=== PATIENT | female | born 1960 ===

== ENCOUNTER 2018-12-31 14:31 | Inpatient (IN) | payer OTHER ==
[~2018-12-31] VITALS: Ht 170.2 cm; Wt 64.5 kg
[2018-12-31] MEDS ORDERED: SODIUM CHLORIDE 0.9% 1,000 ML IV ONE (14:45)
[2018-12-31] MEDS ORDERED: SODIUM CHLORIDE 0.9% 100 ML ONE (14:56)
[2018-12-31] MEDS ORDERED: IOVERSOL 350 MG/ML 100 ML VIAL ONE (14:56)
[2018-12-31 15:19] LABS: GLUCOSE,POINT OF CARE 46 MG/DL (70-110)
[2018-12-31 15:33] LABS: BASOPHILS % (AUTO) 0.2 % (0.0-2.0); EOSINOPHILS % (AUTO) 0 % (1.0-6.0); HEMATOCRIT 39.6 % (36-46); HEMOGLOBIN 12.9 g/dL (12.0-16.0); LYMPHOCYTES # (AUTO) 1.9 K/uL (1.0-4.8); LYMPHOCYTES % (AUTO) 12.3 % (22.0-44.0); MEAN CORPUSCULAR HEMOGLOBIN 26.5 pg (26.0-34.0); MEAN CORPUSCULAR HGB CONC 32.7 G/dL (31.0-37.0); MEAN CORPUSCULAR VOLUME 81 fL (80-100); MONOCYTES # (AUTO) 1.5 K/uL (0.1-1.0); MONOCYTES % (AUTO) 9.7 % (2.0-9.0); NEUTROPHILS # (AUTO) 11.9 K/uL (1.8-7.7); NEUTROPHILS % (AUTO) 77.8 % (40.0-70.0); PLATELET COUNT (AUTO) 340 K/uL (150-450); RED BLOOD CELL COUNT(AUTO) 4.88 MIL/uL (4.00-5.20); RED CELL DISTRIBUTION WIDTH 17.9 % (11.5-14.5)
[2018-12-31 15:36] LABS: INR 1.4 (0.9-1.1); PROTHROMBIN TIME 14.6 SEC (9.4-11.6)
[2018-12-31 15:41] LABS: AMMONIA 30 umol/L (11-32)
[2018-12-31 15:44] LABS: TROPONIN I < 0.02 ng/mL (0.00-0.05)
[2018-12-31] MEDS ORDERED: CETI10TA59 PO (15:44)
[2018-12-31] MEDS ORDERED: ASPI-1182 PO (15:44)
[2018-12-31] MEDS ORDERED: ATOR40TA28 PO (15:44)
[2018-12-31] MEDS ORDERED: METO50 PO (15:44)
[2018-12-31] MEDS ORDERED: BENA1TAB18 PO (15:44)
[2018-12-31] MEDS ORDERED: AMLO10TA7 PO (15:44)
[2018-12-31 15:53] LABS: GLUCOSE,POINT OF CARE 131 MG/DL (70-110)
[2018-12-31 16:09] LABS: ALANINE AMINOTRANSFERASE 200 U/L (12-78); ALBUMIN 2.4 g/dL (3.4-5.0); ALKALINE PHOSPHATASE 217 U/L (46-116); ANION GAP 12 mmol/L (8-16); ASPARTATE AMINOTRANSFERASE 638 U/L (15-37); BILIRUBIN,TOTAL 1.4 mg/dL (0.1-1.0); CARBON DIOXIDE 28 mmol/L (22-29); CHLORIDE 99 mmol/L (98-107); CREATININE 2.05 mg/dL (0.60-1.30); GLOMERULAR FILTR. RATE CALC 25 mL/min (>60); HCG,QUANTITATIVE < 1 mIU/mL (0-6); LACTIC ACID 3.5 mmol/L (0.4-2.0); LIPASE 1794 U/L (73-393); POTASSIUM 4.2 mmol/L (3.5-5.1); SODIUM SERUM 139 mmol/L (136-145); TOTAL PROTEIN, SERUM 8.6 g/dL (6.4-8.2); UREA NITROGEN, BLOOD 73 mg/dL (7-18)
[2018-12-31 16:15] LABS: CREATINE KINASE, TOTAL ONLY 4291 U/L (26-192); GLUCOSE,RANDOM 48 mg/dL (70-110)
[2018-12-31] MEDS ORDERED: LORazepam 2 MG/ML VIAL IVP ONE (16:15)
[2018-12-31 16:16] LABS: CALCIUM, TOTAL 17.3 mg/dL (8.8-10.5)
[2018-12-31 16:17] LABS: SALICYLATE < 2.8 mg/dL (2.8-20.0)
[2018-12-31 16:29] LABS: ACETAMINOPHEN < 2 mcg/mL (10-30)
[2018-12-31] MEDS ORDERED: BISACODYL 10 MG RECTAL RECTAL SUPPOSITORY PR PRN (16:30)
[2018-12-31] MEDS ORDERED: DEXTROSE 5%-0.45% SODIUM CHL 1,000 ML IV ONE (16:30)
[2018-12-31] MEDS ORDERED: PIPERACILLIN/TAZO 3.375 GM/D5W 50 ML IV ONE (16:30)
[2018-12-31] MEDS ORDERED: ACETAMINOPHEN 325 MG TABLET PO PRN (16:30)
[2018-12-31 17:00] LABS: PLATELET MORPHOLOGY COMMENT GIANT PLTS PRESENT
[2018-12-31] MEDS ORDERED: PAMIDRONATE DISODIUM 60 MG in SODIUM CHLORIDE 0.9% 500 ML IV ONE (17:00)
[2018-12-31] MEDS ORDERED: CALCITONIN,SALMON,SYNTHETIC 200 UNITS/ML 2 ML VIAL IM ONE (17:00)
[2018-12-31 17:13] LABS: APPEARANCE,URINE CLOUDY (CLEAR); GLUCOSE, URINE (UA) NEGATIVE (NEGATIVE); KETONES,URINE NEGATIVE (NEGATIVE); LEUKOCYTE ESTERASE ,URINE NEGATIVE (NEGATIVE); NITRATE,URINE NEGATIVE (NEGATIVE); OCCULT BLOOD,URINE TRACE (NEGATIVE); PROTEIN,URINE NEGATIVE (NEGATIVE); UROBILINOGEN,URINE 0.2 mg/dL (<=1.0)
[2018-12-31 17:16] LABS: AMPHET/METH SCREEN,URINE NEGATIVE (NEGATIVE); BARBITURATE SCREEN, URINE NEGATIVE (NEGATIVE); BENZODIAZEPINES SCREEN,URINE NEGATIVE (NEGATIVE); CANNABINOID SCREEN,URINE NEGATIVE (NEGATIVE); COCAINE SCREEN,URINE NEGATIVE (NEGATIVE); METHADONE SCREEN, URINE NEGATIVE (NEGATIVE); OPIATE SCREEN,URINE NEGATIVE (NEGATIVE)
[2018-12-31 17:17] LABS: PHENCYCLIDINE SCREEN,URINE NEGATIVE (NEGATIVE)
[2018-12-31 17:18] LABS: BILIRUBIN,URINE PRELIM. POSITIVE (NEGATIVE)
[2018-12-31 17:20] LABS: AMORPHOUS SEDIMENT,UR Moderate /LPF (None Seen); BACTERIA,URINE None Seen /HPF (None Seen); RBC,URINE 0-2 /HPF (0-2); SQUAMOUS EPITHELIAL CELL,UR Few /LPF (None Seen); WBC,URINE 0-2 /HPF (0-5)
[2018-12-31] MEDS: SODIUM CHLORIDE 0.45% 1,000 ML IV SCH (17:22)
[2018-12-31 17:35] LABS: GLUCOSE,POINT OF CARE 76 MG/DL (70-110)
[2018-12-31 21:29] VITALS: BP 121/78
[2018-12-31 23:29] VITALS: BP 103/68
[2019-01-01] MEDS: SODIUM CHLORIDE 0.45% 1,000 ML IV SCH (03:20)
[2019-01-01 04:42] VITALS: BP 147/74
[2019-01-01 08:11] VITALS: BP 144/70
[2019-01-01 09:39] LABS: ALBUMIN 2.2 g/dL (3.4-5.0); BILIRUBIN,TOTAL 1.3 mg/dL (0.1-1.0); CREATININE 2.2 mg/dL (0.60-1.30); TOTAL PROTEIN, SERUM 7.6 g/dL (6.4-8.2)
[2019-01-01 09:40] LABS: CALCIUM, TOTAL 13.4 mg/dL (8.8-10.5)
[2019-01-01 10:54] VITALS: BP 123/77
[2019-01-01] MEDS ORDERED: CALCITONIN,SALMON,SYNTHETIC 200 UNITS/ML 2 ML VIAL IM ONE (11:45)
[2019-01-01] MEDS: DEXTROSE 5%-0.9% SODIUM CHL 1,000 ML IV SCH ×2 (11:53→23:33)
[2019-01-01] MEDS: PANTOPRAZOLE SODIUM 40 MG/VIAL IVP SCH (11:53)
[2019-01-01 14:39] LABS: MAGNESIUM 1.5 mg/dL (1.80-2.40)
[2019-01-01 15:34] VITALS: BP 115/77
[2019-01-01] MEDS ORDERED: MAGNESIUM SULFATE 1 GM in DEXTROSE 5%-WATER 50 ML IV ONE (15:45)
[2019-01-01] MEDS: ACETAMINOPHEN 650 MG RECTAL SUPPOSITORY PR PRN (16:32)
[2019-01-01 20:10] VITALS: BP 121/73
[2019-01-02] VITALS (8 sets, daily range): BP systolic 113–136; BP diastolic 59–91
[2019-01-02] MEDS: ACETAMINOPHEN 650 MG RECTAL SUPPOSITORY PR PRN (00:33)
[2019-01-02 06:49] LABS: CREATININE 2.09 mg/dL (0.60-1.30); MAGNESIUM 1.6 mg/dL (1.80-2.40); POTASSIUM 3.2 mmol/L (3.5-5.1)
[2019-01-02 06:50] LABS: CALCIUM, TOTAL 12.9 mg/dL (8.8-10.5)
[2019-01-02] MEDS: PANTOPRAZOLE SODIUM 40 MG/VIAL IVP SCH (07:47)
[2019-01-02] MEDS ORDERED: POTASSIUM CHL 10 MEQ/WATER 50 ML IV ONE (09:45)
[2019-01-02] MEDS ORDERED: MAGNESIUM SULFATE 1 GM in DEXTROSE 5%-WATER 50 ML IV ONE (10:30)
[2019-01-02] MEDS: POTASSIUM CHL 20 MEQ/D5-0.2NS 1,000 ML IV SCH (16:02)
[2019-01-03] MEDS: POTASSIUM CHL 20 MEQ/D5-0.2NS 1,000 ML IV SCH (01:09)
[2019-01-03 04:59] VITALS: BP 127/77
[2019-01-03 07:53] LABS: CREATININE 1.67 mg/dL (0.60-1.30); MAGNESIUM 1.6 mg/dL (1.80-2.40); POTASSIUM 3.6 mmol/L (3.5-5.1)
[2019-01-03 07:59] LABS: CALCIUM, TOTAL 13.2 mg/dL (8.8-10.5)
[2019-01-03 08:10] VITALS: BP 123/78
[2019-01-03] MEDS ORDERED: MAGNESIUM SULFATE 1 GM in DEXTROSE 5%-WATER 50 ML IV ONE (09:00)
[2019-01-03] MEDS: PANTOPRAZOLE SODIUM 40 MG/VIAL IVP SCH (09:10)
[2019-01-03] MEDS ORDERED: CALCITONIN,SALMON,SYNTHETIC 200 UNITS/SPRAY 3.7 ML BOTTLE NASAL ONE (09:15)
[2019-01-03] MEDS ORDERED: *NON-FORMULARY MED [ENTER DRUG, DOSE, FREQ IN COMMENTS] CLINICAL ONE (09:15)
[2019-01-03] MEDS ORDERED: DEXTROSE 5%-WATER 1,000 ML IV SCH (09:15)
[2019-01-03] MEDS ORDERED: MAGNESIUM CHLORIDE 64 MG ER TABLET PO SCH (10:00)
[2019-01-03] MEDS ORDERED: CALCITONIN,SALMON,SYNTHETIC 200 UNITS/ML 2 ML VIAL SQ ONE (10:00)
[2019-01-03 11:49] VITALS: BP 118/78
[2019-01-04] MEDS ORDERED: DENOSUMAB 60 MG/ML SQ ONE (10:00)
== END 2019-01-03 16:20 | DRG 282 ==
LOC: EDBD 14:34 → EMS 14:34 → 5S 18:40
PROVIDERS: ADMIT Internal Medicine; ATTEND Internal Medicine
DX: K85.90 Acute pancreatitis without necrosis or infection, unspecified (principal); G93.41 Metabolic encephalopathy; E43 Unspecified severe protein-calorie malnutrition; N17.9 Acute kidney failure, unspecified; C79.9 Secondary malignant neoplasm of unspecified site; R64 Cachexia; E87.0 Hyperosmolality and hypernatremia; E83.52 Hypercalcemia; I11.0 Hypertensive heart disease with heart failure; R65.10 Systemic inflammatory response syndrome (SIRS) of non-infectious origin without acute organ dysfunction; E16.2 Hypoglycemia, unspecified; I50.9 Heart failure, unspecified; F84.0 Autistic disorder; E87.6 Hypokalemia; Z66 Do not resuscitate; C50.912 Malignant neoplasm of unspecified site of left female breast; M62.82 Rhabdomyolysis; Z68.22 Body mass index [BMI] 22.0-22.9, adult; E78.5 Hyperlipidemia, unspecified; Z85.3 Personal history of malignant neoplasm of breast
CPT/HCPCS: 51702; 70450; 71250; 72192; 74150; 82397; 83605; 83735; 83970; 87040; 92526; 92610; 93005; 99291; C9113; G0480; G0481; J0630; J2060; J2430; J2543; J3475; J3480; J7040; J7042; J7050; J7060